=== PATIENT | female | born 1985 | race Caucasian/White ===

== ENCOUNTER 2018-03-21 11:32 | Emergency (ER) | payer BC ==
--- NOTE | 2018-03-21 12:15 | EDM.PDOC ---
ED HPI GENERAL MEDICAL PROBLEM - General Chief Complaint: ENT Problem Stated Complaint: FLUID ON EARS Time Seen by Provider: 03/21/18 11:41 Source of Information: Reports: Patient History Limitations: Reports: No Limitations - History of Present Illness INITIAL COMMENTS - FREE TEXT/NARRATIVE: Patient presents with dizziness that she describes as feeling off balance and unsteady with ambulation and upright activities. She says this is similar to feeling drunk, although she rarely drinks and nothing recent. This has been a problem off and on for two years. She says her left ear feels full. 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 She has had CT of head and sinuses and has tried Kaylyn Maneuvers with PT, Meclizine, antibiotics; she saw ENT a year ago, but nothing has helped. She denies vertigo , ear ringing or hearing loss, vision change, headache. She is okay sitting at a computer or reading but doing more active things like walking is affected and yard work is almost impossible due to what she describes as disequilibrium or off balance feeling. - Related Data Allergies Allergy/AdvReac Type Severity Reaction Status Date / Time chloroprep Allergy Cannot Uncoded 03/21/18 11:52 Remember Home Meds: Home Meds Citalopram Hydrobromide [Celexa] 10 mg PO DAILY 03/21/18 [History] ED ROS GENERAL - Review of Systems Review Of Systems: See Below Constitutional: Denies: Fever, Chills, Malaise, Weakness, Diaphoresis HEENT: Reports: Ear Pain (not pain; just fullness). Denies: Ear Discharge, Eye Discharge, Eye Pain, Hearing Loss, Sinus Problem, Vertigo, Vision Change Respiratory: Denies: Shortness of Breath Cardiovascular: Reports: No Symptoms Endocrine: Reports: No Symptoms GI/Abdominal: Reports: No Symptoms. Denies: Abdominal Pain, Vomiting : Reports: No Symptoms. Denies: Dysuria Musculoskeletal: Reports: No Symptoms Skin: Denies: Cyanosis, Jaundice, Mottled, Pallor, Diaphoresis Neurological: Reports: Dizziness. Denies: Confusion, Headache, Numbness, Seizure, Syncope, Tingling, Trouble Speaking, Difficulty Walking Psychiatric: Denies: Agitation, Anxiety, Confusion ED EXAM, DIZZINESS - Physical Exam Exam: See Below Exam Limited By: No Limitations General Appearance: Alert, WD/WN, No Apparent Distress Eye Exam: Bilateral Eye: EOMI, Normal Inspection (no nystagmus), PERRL Ears: Normal External Exam, Normal Canal, Hearing Grossly Normal, TM Dullness ( slightly on left that could be fluid). No: Hearing Loss, Auricular Erythema, Auricular Ecchymosis, Auricular Tenderness, Mastoid Swelling, Mastoid Tenderness , Canal Blood, Canal Discharge, TM Bulging, TM Erythema, TM Blood, TM Perforation, TM Obscured by Cerumen, Cerumen Impaction Nose: Normal Inspection, No Blood Throat/Mouth: Normal Inspection, Normal Lips, Normal Voice, No Airway Compromise Head Exam: Atraumatic, Normocephalic Neck: Normal Inspection, Supple, Non-Tender, Full Range of Motion Respiratory/Chest: No Respiratory Distress, Lungs Clear, Normal Breath Sounds, No Accessory Muscle Use Cardiovascular: Regular Rate, Rhythm, No Murmur, No Rub GI/Abdominal: No Distention Neurological: Alert, Normal Mood/Affect, CN II-XII Intact, No Motor/Sensory Deficits, Oriented x 3, Other (Jazmine Hallpike maneuver produced no nystagmus but did produce feelings she described as like being drunk, in both left and right, that took about a minute to resolve.) Back Exam: No: CVA Tenderness (L), CVA Tenderness (R) Extremities: Normal Inspection, Normal Range of Motion Psychiatric: Normal Affect, Normal Mood Skin Exam: Warm, Dry, Intact, Normal Color, No Rash Course - Vital Signs Last Recorded V/S: Last Vital Signs Temp 98.3 F 03/21/18 11:48 Pulse 70 03/21/18 11:48 Resp 16 03/21/18 11:48 BP 120/70 03/21/18 11:48 Pulse Ox 100 03/21/18 11:48 - Re-Assessments/Exams Free Text/Narrative Re-Assessment/Exam: 03/21/18 13:13 Discussed findings and recommendations. No sign of infection. Discussed meclizine but she has tried that without benefit. The one time she saw ENT she doesn't feel like it was very thorough; he just ruled out a couple things. I advised her to see ENT again as soon as she can get in and to be persistent with them if necessary to figure out what is causing this and what she can do to improve it. Patient agrees with this plan and is discharged to home in stable condition. Departure - Departure Time of Disposition: 12:10 Disposition: Home, Self-Care 01 Condition: Good Clinical Impression: Dizziness - Discharge Information Instructions: Dizziness, Benign Positional Vertigo Referrals: Liyah Trinh DATA WAREHOUSING MANAGER [Primary Care Provider] - Additional Instructions: 1. Make appointment with ENT as soon as available. You can schedule directly or through your PCP. 2. Return to ER as needed.
== END 2018-03-21 12:20 | disposition home or self-care (01) ==
LOC: KA.ED 11:32
DX: R42 Dizziness and giddiness (principal); Z91.048 Other nonmedicinal substance allergy status
CPT/HCPCS: 99283

== ENCOUNTER 2019-10-02 11:50 | Emergency (ER) | payer BC ==
[2019-10-02] MEDS ORDERED: Ibuprofen 600 MG Tab PO ONE (12:18)
--- NOTE | 2019-10-02 12:34 | EDM.PDOC ---
ED HPI GENERAL MEDICAL PROBLEM - General Chief Complaint: Fever Stated Complaint: FEVER Time Seen by Provider: 10/02/19 12:15 Source of Information: Reports: Patient History Limitations: Reports: No Limitations - History of Present Illness INITIAL COMMENTS - FREE TEXT/NARRATIVE: 34 YO WF presents to ER with complaints of fever, nonproductive cough and congestion x 2 days. Pt reports mild shortness of breath but denies chest pain. Pt states fever was higher this am prompting ER evaluation. Pt denies headache, no nausea/vomiting, no body aches. Pt with history of bronchitis in the past but states she ran out of her albuterol medication. Onset Date: 09/30/19 Duration: Day(s): (2) Location: Reports: Chest Severity: Mild Improves with: Reports: Medication Worsens with: Reports: None Associated Symptoms: Reports: Cough, cough w sputum, Fever/Chills, Loss of Appetite, Shortness of Breath. Denies: Headaches, Nausea/Vomiting - Related Data Allergies Allergy/AdvReac Type Severity Reaction Status Date / Time adhesive Allergy Swelling Verified 10/02/19 12:24 pseudoephedrine Allergy Anxiety Verified 10/02/19 12:24 [From Sudafed] chloroprep Allergy Cannot Uncoded 10/02/19 12:24 Remember Home Meds: Home Meds Citalopram Hydrobromide [Celexa] 20 mg PO DAILY 03/21/18 [History] Oseltamivir [Tamiflu] 75 mg PO BID #8 cap 10/02/19 [Rx] Social & Family History - Tobacco Use Smoking Status *Q: Never Smoker Second Hand Smoke Exposure: No - Caffeine Use Caffeine Use: Reports: Coffee - Recreational Drug Use Recreational Drug Use: No ED ROS GENERAL - Review of Systems Review Of Systems: See Below Constitutional: Reports: Fever, Chills, Malaise HEENT: Reports: No Symptoms Respiratory: Reports: Shortness of Breath Cardiovascular: Reports: No Symptoms Endocrine: Reports: No Symptoms GI/Abdominal: Reports: No Symptoms : Reports: No Symptoms Musculoskeletal: Reports: No Symptoms Skin: Reports: No Symptoms Neurological: Reports: No Symptoms Psychiatric: Reports: No Symptoms Hematologic/Lymphatic: Reports: No Symptoms Immunologic: Reports: No Symptoms ED EXAM, GENERAL - Physical Exam Exam: See Below Exam Limited By: No Limitations General Appearance: Alert, WD/WN, No Apparent Distress Eye Exam: Bilateral Eye: PERRL Ears: Normal External Exam, Normal Canal, Hearing Grossly Normal, Normal TMs Ear Exam: Bilateral Ear: Auricle Normal, Canal Normal, TM normal Nose: Nasal Swelling Throat/Mouth: Normal Inspection, Normal Lips, Normal Teeth, Normal Gums, Normal Oropharynx, Normal Voice, No Airway Compromise Head: Atraumatic, Normocephalic Neck: Normal Inspection, Supple, Non-Tender, Full Range of Motion Respiratory/Chest: No Respiratory Distress, Lungs Clear, Normal Breath Sounds, No Accessory Muscle Use, Chest Non-Tender Cardiovascular: Normal Peripheral Pulses, Regular Rate, Rhythm, No Edema, No Gallop, No JVD, No Murmur, No Rub GI/Abdominal: Normal Bowel Sounds, Soft, Non-Tender, No Organomegaly, No Distention, No Abnormal Bruit, No Mass Back Exam: Normal Inspection, Full Range of Motion, NT Extremities: Normal Inspection, Normal Range of Motion, Non-Tender, Normal Capillary Refill, No Pedal Edema Neurological: Alert, Oriented, CN II-XII Intact, Normal Cognition, Normal Gait, Normal Reflexes, No Motor/Sensory Deficits Psychiatric: Normal Affect, Normal Mood Skin Exam: Warm, Dry, Intact, Normal Color, No Rash Lymphatic: No Adenopathy Course - Vital Signs Last Recorded V/S: Last Vital Signs Temp 39.2 C H 10/02/19 12:22 Pulse 100 10/02/19 11:50 Resp 20 10/02/19 11:50 BP 127/85 10/02/19 11:50 Pulse Ox 98 10/02/19 11:50 - Orders/Labs/Meds Orders: Active Orders 24 hr Category Date Time Status Chest 2V [CR] Stat Exams 10/02/19 12:06 Ordered INFLUENZA A+B AG SCREEN [RM] Stat Lab 10/02/19 12:05 Ordered Meds: Medications Discontinued Medications Generic Name Dose Route Start Last Admin Trade Name Freq PRN Reason Stop Dose Admin Ibuprofen 600 mg 10/02/19 12:18 10/02/19 12:22 Motrin PO 10/02/19 12:19 600 mg ONETIME ONE Administration - Radiology Interpretation Free Text/Narrative:: CXR- NAD Departure - Departure Time of Disposition: 12:53 Disposition: Home, Self-Care 01 Condition: Fair Clinical Impression: Influenza B - Discharge Information Prescriptions: Oseltamivir [Tamiflu] 75 mg PO BID #8 cap Instructions: Influenza, Adult Referrals: Katya Patel MD [Physician] - Additional Instructions: 1. Discharge home 2. tamiflu 75mg PO BID x 5 days 3. albuterol HFA 2 puffs every 4 hours and as needed 4. zyrtec 10mg in am 5. benadryl 50mg in PM 6. afrin NS 2 sprays each nostril twice per day x 3 days only 7. follow up with pcp for recheck this week 8. return to ER for worsening symptoms Sepsis Event Note - Evaluation Sepsis Screening Result: Possible Sepsis Risk - Focused Exam Vital Signs: Vital Signs Temp Temp Pulse Resp BP Pulse Ox 10/02/19 12:22 39.2 C H 10/02/19 11:50 39.2 C H 100 20 127/85 98 Date Exam was Performed: 10/02/19 Time Exam was Performed: 12:27 - My Orders Last 24 Hours: My Active Orders 10/02/19 12:05 INFLUENZA A+B AG SCREEN [RM] Stat 10/02/19 12:06 Chest 2V [CR] Stat - Assessment/Plan Last 24 Hours: My Active Orders 10/02/19 12:05 INFLUENZA A+B AG SCREEN [RM] Stat 10/02/19 12:06 Chest 2V [CR] Stat Assessment:: 1. Influenza B Plan: 1. Discharge home 2. tamiflu 75mg PO BID x 5 days 3. albuterol HFA 2 puffs every 4 hours and as needed 4. zyrtec 10mg in am 5. benadryl 50mg in PM 6. afrin NS 2 sprays each nostril twice per day x 3 days only 7. follow up with pcp for recheck this week 8. return to ER for worsening symptoms
[2019-10-02] MEDS ORDERED: Oseltamivir 75 MG Cap PO ONE (12:41)
[2019-10-02] MEDS ORDERED: Albuterol/Ipratropium 3.0-0.5 MG/3 ML Neb Soln NEB ONE (12:47)
[2019-10-02] MEDS ORDERED: Albuterol 8 GM Inhaler INH ONE (12:47)
--- NOTE | 2019-10-02 13:01 | CR ---
[id number] RAD/RAD Chest PA And Lateral EXAM: RAD Chest PA And Lateral INDICATION: TIGHTNESS WHEN BREATHING. COMPARISON: June 04, 2013. DISCUSSION: Cardiomediastinal silhouette is normal in size and contour. No infiltrate, effusion, pneumothorax, or edema. IMPRESSION: No acute findings. Obed Marroquin MD 10/02/19 1300 Thank you for allowing us to participate in the care of your patient.
== END 2019-10-02 13:15 | disposition home or self-care (01) ==
LOC: KA.ED 11:50
DX: J10.1 Influenza due to other identified influenza virus with other respiratory manifestations (principal)
CPT/HCPCS: 71046; 87804; 94640; 99285-25; A9270-GY; J7620-GY

== ENCOUNTER 2021-04-27 19:38 | Emergency (ER) | payer BC ==
[2021-04-27] MEDS ORDERED: Sodium Chloride 0.9% 1,000 ML IV ONE (19:55)
[2021-04-27] MEDS ORDERED: Sodium Chloride 0.9% 1,000 ML ONE (19:57)
[2021-04-27] MEDS ORDERED: Ondansetron 4 MG/2 ML SDV IVPUSH ONE (20:24)
[2021-04-27] MEDS ORDERED: Acetaminophen 500 MG Tab PO ONE (20:24)
--- NOTE | 2021-04-27 20:24 | EDM.PDOC ---
ED HPI GENERAL MEDICAL PROBLEM - General Chief Complaint: Fever Stated Complaint: FEVER/MAILASE Time Seen by Provider: 04/27/21 20:00 Source of Information: Reports: Patient History Limitations: Reports: No Limitations - History of Present Illness INITIAL COMMENTS - FREE TEXT/NARRATIVE: 35 YO WF PRESENTS TO ER COMPLAINING OF FEVER AND MALAISE X 1 DAYS. PT REPORTS FEVER CAME ON SUDDENLY WITH ASSOCIATED BODY ACHES, NAUSEA AND MILD GENERALIZED HEADACHE. PT REPORTS SHE WAS SEEN AT THE WALK IN CLINIC TODAY BUT WAS TOLD SHE HAD A VIRAL SYNDROME AND INSTRUCTED TO FOLLOW UP FOR RECHECK IF THE FEVERS CONTINUE PROMPTING ER EVALUATION. PT REPORTS SHE HAS HAD THE COVID VACCINE OCTOBER 2020. PT DENIES CHEST PAIN OR SHORTNESS OF BREATH. PT DENIES ABDOMINAL PAIN OR DIARRHEA. Onset Date: 04/26/21 Location: Reports: Generalized Quality: Reports: Ache Severity: Moderate Improves with: Reports: Medication Worsens with: Reports: None Associated Symptoms: Reports: Fever/Chills, Malaise, Nausea/Vomiting. Denies: Rash, Shortness of Breath, Weakness Treatments CERTIFIED MEDICAL BILLER: Reports: NSAIDS Generalized Pain Score (Numeric/FACES): 5 - Related Data Allergies Allergy/AdvReac Type Severity Reaction Status Date / Time adhesive Allergy Swelling Verified 04/27/21 20:04 pseudoephedrine Allergy Anxiety Verified 04/27/21 20:04 [From Sudafed] chloroprep Allergy Cannot Uncoded 04/27/21 20:04 Remember Home Meds: Home Meds Citalopram Hydrobromide [Celexa] 20 mg PO DAILY 03/21/18 [History] Past Medical History HEENT History: Reports: None Other Cardiovascular History: PVC'S Respiratory History: Reports: Other (See Below) Other Respiratory History: BRONCHITIS IN THE PAST Gastrointestinal History: Reports: None Genitourinary History: Reports: None GROUP INSURANCE SPECIALIST History: Reports: Musculoskeletal History: Reports: None Psychiatric History: Reports: Depression - Infectious Disease History Infectious Disease History: Reports: Chicken Pox - Past Surgical History HEENT Surgical History: Reports: Tonsillectomy Cardiovascular Surgical History: Reports: None Respiratory Surgical History: Reports: None GI Surgical History: Reports: Appendectomy, Hernia Repair/Other Female Surgical History: Reports: Section Musculoskeletal Surgical History: Reports: Other (See Below) Other Musculoskeletal Surgeries/Procedures:: LEFT ANKLE LIGAMENT ATTATCHMENT. RIGHT KNEE ALIGNMENT Social & Family History - Family History Family Medical History: No Pertinent Family History - Tobacco Use Tobacco Use Status *Q: Never Tobacco User - Caffeine Use Caffeine Use: Reports: Coffee, Energy Drinks - Recreational Drug Use Recreational Drug Use: No ED ROS GENERAL - Review of Systems Review Of Systems: See Below Constitutional: Reports: Fever, Chills, Malaise HEENT: Reports: Rhinitis, Throat Pain Respiratory: Reports: Cough Cardiovascular: Reports: No Symptoms Endocrine: Reports: No Symptoms GI/Abdominal: Reports: Nausea. Denies: Abdominal Pain, Constipation, Diarrhea, Vomiting : Reports: No Symptoms. Denies: Dysuria, Frequency, Urgency Musculoskeletal: Reports: No Symptoms Skin: Reports: No Symptoms Neurological: Reports: Headache Psychiatric: Reports: No Symptoms Hematologic/Lymphatic: Reports: No Symptoms Immunologic: Reports: No Symptoms ED EXAM, GENERAL - Physical Exam Exam: See Below Exam Limited By: No Limitations General Appearance: Alert, WD/WN, No Apparent Distress Eye Exam: Bilateral Eye: PERRL Ears: Normal External Exam, Normal Canal, Hearing Grossly Normal, Normal TMs Ear Exam: Bilateral Ear: TM normal Nose: Normal Inspection, Normal Mucosa, No Blood Throat/Mouth: Normal Inspection, Normal Lips, Normal Teeth, Normal Gums, Normal Oropharynx, Normal Voice, No Airway Compromise Head: Atraumatic, Normocephalic Neck: Normal Inspection, Supple, Non-Tender, Full Range of Motion Respiratory/Chest: No Respiratory Distress, Lungs Clear, Normal Breath Sounds, No Accessory Muscle Use, Chest Non-Tender Cardiovascular: Normal Peripheral Pulses, Regular Rate, Rhythm, No Edema, No Gallop, No JVD, No Murmur, No Rub GI/Abdominal: Normal Bowel Sounds, Soft, Non-Tender, No Organomegaly, No Distention, No Abnormal Bruit, No Mass Back Exam: Normal Inspection, Full Range of Motion, NT Extremities: Normal Inspection, Normal Range of Motion, Non-Tender, Normal Capillary Refill, No Pedal Edema Neurological: Alert, Oriented, CN II-XII Intact, Normal Cognition, Normal Gait, No Motor/Sensory Deficits Psychiatric: Normal Affect, Normal Mood Skin Exam: Warm, Dry, Intact, Normal Color, No Rash Lymphatic: No Adenopathy Course - Vital Signs Last Recorded V/S: Last Vital Signs Temp 99.7 F 04/27/21 21:01 Pulse 102 H 04/27/21 19:38 Resp 18 07/17/21 19:38 BP 122/77 04/27/21 19:38 Pulse Ox 97 04/27/21 19:38 - Orders/Labs/Meds Orders: Active Orders 24 hr Category Date Time Status Chest 2V [CR] Stat Exams 04/27/21 20:03 Ordered Labs: Laboratory Tests 04/27/21 04/27/21 04/27/21 Range/Units 19:52 20:00 20:15 WBC 12.62 H (5.00-10.00) 10^3/uL RBC 4.32 (3.80-5.50) 10^6/uL Hgb 14.0 (12.0-16.0) g/dL Hct 40.9 (37.0-47.0) % MCV 94.7 H (82.0-92.0) fL MCH 32.4 H (27.0-31.0) pg MCHC 34.2 (32.0-36.0) g/dL RDW 13.0 (11.5-14.5) % Plt Count 220 (150-400) 10^3/uL MPV 10.6 H (7.4-10.4) fL Immature Gran % (Auto) 0.2 (0.0-5.0) % Neut % (Auto) 70.7 H (50.0-70.0) % Lymph % (Auto) 16.3 L (20.0-40.0) % [place] % (Auto) 11.9 H (2.0-8.0) % Eos % (Auto) 0.8 L (1.0-3.0) % Baso % (Auto) 0.1 (0.0-1.0) % Neut # (Auto) 8.93 H (2.50-7.00) 10^3/uL Lymph # (Auto) 2.06 (1.00-4.00) 10^3/uL [place] # (Auto) 1.50 H (0.10-0.80) 10^3/uL Eos # (Auto) 0.10 (0.10-0.30) 10^3/uL Baso # (Auto) 0.01 (0.00-0.10) 10^3/uL Immature Gran # (Auto) 0.02 (0.00-0.50) 10^3/uL Sodium (136-145) mmol/L Potassium (3.5-5.1) mmol/L Chloride (98-107) mmol/L Carbon Dioxide (21.0-32.0) mmol/L Anion Gap (5-15) mmol/L BUN (7-18) mg/dL Creatinine (0.51-1.17) mg/dL Est Cr Clr Drug Dosing mL/min Estimated GFR (MDRD) mL/min Glucose (70-140) mg/dL Calcium (8.7-10.3) mg/dL Total Bilirubin (0.2-1.0) mg/dL AST (15-37) U/L ALT (14-63) U/L Alkaline Phosphatase (46-116) U/L Total Protein (6.4-8.2) g/dL Albumin (3.40-5.00) g/dL HCG, Qual (NEGATIVE) Specimen Type Urincc Urine Color Yellow (YELLOW) Urine Appearance Slightly cloudy H (CLEAR) Urine pH 8.0 (5.0-9.0) Ur Specific [place] 1.015 (1.005-1.030) Urine Protein Negative (NEGATIVE) mg/dL Urine Glucose (UA) Negative (NEGATIVE) mg/dL Urine Ketones Negative (NEGATIVE) mg/dL Urine Occult Blood Negative (NEGATIVE) Urine Nitrite Negative (NEGATIVE) Urine Bilirubin Negative (NEGATIVE) Urine Urobilinogen 0.2 (0.2-1.0) E.U./dL Ur Leukocyte Esterase Negative (NEGATIVE) Urine RBC 0-5 (0-5) /HPF Urine WBC 0-5 (0-5) /HPF Ur Epithelial Cells Few /LPF Urine Bacteria Few (NONE TO FEW) /HPF SARS CoV-2 RNA Rapid EVELYNE Negative (NEGATIVE) 04/27/21 04/27/21 Range/Units 20:30 20:30 WBC (5.00-10.00) 10^3/uL RBC (3.80-5.50) 10^6/uL Hgb (12.0-16.0) g/dL Hct (37.0-47.0) % MCV (82.0-92.0) fL MCH (27.0-31.0) pg MCHC (32.0-36.0) g/dL RDW (11.5-14.5) % Plt Count (150-400) 10^3/uL MPV (7.4-10.4) fL Immature Gran % (Auto) (0.0-5.0) % Neut % (Auto) (50.0-70.0) % Lymph % (Auto) (20.0-40.0) % [place] % (Auto) (2.0-8.0) % Eos % (Auto) (1.0-3.0) % Baso % (Auto) (0.0-1.0) % Neut # (Auto) (2.50-7.00) 10^3/uL Lymph # (Auto) (1.00-4.00) 10^3/uL [place] # (Auto) (0.10-0.80) 10^3/uL Eos # (Auto) (0.10-0.30) 10^3/uL Baso # (Auto) (0.00-0.10) 10^3/uL Immature Gran # (Auto) (0.00-0.50) 10^3/uL Sodium 139 (136-145) mmol/L Potassium 3.7 (3.5-5.1) mmol/L Chloride 102 (98-107) mmol/L Carbon Dioxide 26.6 (21.0-32.0) mmol/L Anion Gap 14.1 (5-15) mmol/L BUN 9 (7-18) mg/dL Creatinine 0.84 (0.51-1.17) mg/dL Est Cr Clr Drug Dosing 90.04 mL/min Estimated GFR (MDRD) > 60 mL/min Glucose 99 (70-140) mg/dL Calcium 8.2 L (8.7-10.3) mg/dL Total Bilirubin 0.3 (0.2-1.0) mg/dL AST 16 (15-37) U/L ALT 20 (14-63) U/L Alkaline Phosphatase 84 (46-116) U/L Total Protein 7.4 (6.4-8.2) g/dL Albumin 3.67 (3.40-5.00) g/dL HCG, Qual Negative (NEGATIVE) Specimen Type Urine Color (YELLOW) Urine Appearance (CLEAR) Urine pH (5.0-9.0) Ur Specific [place] (1.005-1.030) Urine Protein (NEGATIVE) mg/dL Urine Glucose (UA) (NEGATIVE) mg/dL Urine Ketones (NEGATIVE) mg/dL Urine Occult Blood (NEGATIVE) Urine Nitrite (NEGATIVE) Urine Bilirubin (NEGATIVE) Urine Urobilinogen (0.2-1.0) E.U./dL Ur Leukocyte Esterase (NEGATIVE) Urine RBC (0-5) /HPF Urine WBC (0-5) /HPF Ur Epithelial Cells /LPF Urine Bacteria (NONE TO FEW) /HPF SARS CoV-2 RNA Rapid EVELYNE (NEGATIVE) Meds: Medications Discontinued Medications Generic Name Dose Route Start Last Admin Trade Name Freq PRN Reason Stop Dose Admin Acetaminophen 1,000 mg 04/27/21 20:24 04/27/21 20:31 Acetaminophen 500 Mg Tab PO 04/27/21 20:25 1,000 mg ONETIME ONE Administration Sodium Chloride Confirm 04/27/21 19:57 04/27/21 20:34 Normal Saline Administered 04/27/21 19:58 Not Given Dose 1,000 mls @ as directed .ROUTE .STK-MED ONE Sodium Chloride 1,000 mls @ 999 mls/hr 04/27/21 19:55 04/27/21 19:59 Normal Saline IV 04/27/21 20:55 999 mls/hr .BOLUS ONE Administration Ondansetron HCl 4 mg 04/27/21 20:24 04/27/21 20:29 Ondansetron 4 Mg/2 Ml Sdv IVPUSH 04/27/21 20:25 4 mg ONETIME ONE Administration Ondansetron HCl 12 mg 04/27/21 21:06 04/27/21 21:15 Ondansetron 4 Mg Tab.Dis PO 04/27/21 21:07 12 mg ONETIME ONE Administration - Radiology Interpretation Free Text/Narrative:: CXR- NAD Departure - Departure Time of Disposition: 21:08 Disposition: Home, Self-Care 01 Condition: Fair Clinical Impression: Viral syndrome, Fever - Discharge Information Instructions: Fever, Adult, Viral Illness, Adult Referrals: Sherry Abdi MD [Physician] - Forms: ED Department Discharge Additional Instructions: 1. DISCHARGE HOME 2. TYLENOL 1000MG EVERY 6 HOURS FOR FEVER X 2 DAYS 3. MOTRIN 600MG EVERY 6 HOURS FOR FEVER X 2 DAYS 4. ZOFRAN 4MG ODT FOR NAUSEA EVERY 6 HOURS NEEDED #3 5. ZYRTEC 10MG DAILY FOR COUGH/CONGESTION 6. FOLLOW UP WITH PCP FOR FURTHER EVALUATION AND TREATMENT NEEDED 7. RETURN TO ER FOR WORSENING SYMPTOMS Sepsis Event Note (ED) - Evaluation Sepsis Screening Result: Possible Sepsis Risk - Focused Exam Vital Signs: Vital Signs Temp Temp Pulse Resp BP Pulse Ox 04/27/21 21:01 99.7 F 04/27/21 20:31 99.4 F 04/27/21 19:38 99.2 F 102 H 18 122/77 97 - My Orders Last 24 Hours: My Active Orders 04/27/21 20:03 Chest 2V [CR] Stat - Assessment/Plan Last 24 Hours: My Active Orders 04/27/21 20:03 Chest 2V [CR] Stat Assessment:: 1. FEVER/CHILLS 2. VIRAL URI Plan: 1. DISCHARGE HOME 2. TYLENOL 1000MG EVERY 6 HOURS FOR FEVER X 2 DAYS 3. MOTRIN 600MG EVERY 6 HOURS FOR FEVER X 2 DAYS 4. ZOFRAN 4MG ODT FOR NAUSEA EVERY 6 HOURS NEEDED #3 5. ZYRTEC 10MG DAILY FOR COUGH/CONGESTION 6. FOLLOW UP WITH PCP FOR FURTHER EVALUATION AND TREATMENT NEEDED 7. RETURN TO ER FOR WORSENING SYMPTOMS
[2021-04-27 21:04] LABS: ANION GAP 14.1 mmol/L (5-15); CHLORIDE,CL 102 mmol/L (98-107); SODIUM,NA 139 mmol/L (136-145)
[2021-04-27] MEDS ORDERED: Ondansetron 4 MG Tab.DIS PO ONE (21:06)
[2021-04-28] MEDS ORDERED: Albuterol/Ipratropium 3.0-0.5 MG/3 ML Neb Soln ONE (00:07)
--- NOTE | 2021-04-28 09:31 | CR ---
[id number] RAD/RAD Chest PA And Lateral EXAM: FRONTAL AND LATERAL CHEST INDICATION: FEVER COMPARISON: October 02, 2019. DISCUSSION: The heart and lungs are normal in appearance. IMPRESSION: 1. Negative exam. Hilario Mendoza MD 04/28/21 0930 Thank you for allowing us to participate in the care of your patient.
== END 2021-04-27 21:18 | disposition home or self-care (01) ==
LOC: KA.ED 19:38
DX: B34.9 Viral infection, unspecified (principal); Z88.8 Allergy status to other drugs, medicaments and biological substances; Z91.048 Other nonmedicinal substance allergy status; Z20.822 Contact with and (suspected) exposure to COVID-19
CPT/HCPCS: 71046; 80053; 81001; 84703; 85025; 87635; 96374; 99283; A9270; J2405; J7030; U0002

== ENCOUNTER 2022-03-11 20:10 | Emergency (ER) | payer BC ==
[2022-03-11] MEDS: Fluorescein 1 MG Ophth Strip EYEBOTH ONE (20:54)
[2022-03-11] MEDS: Tetracaine HCl/PF 0.5% 4 ML Bottle EYEBOTH ONE (20:56)
[2022-03-11] MEDS: Ofloxacin 0.3% Ophth Soln 5 ML Bottle EYERT SCH (21:15)
== END 2022-03-11 21:24 | disposition home or self-care (01) ==
LOC: KA.ED 20:10
DX: S05.01XA Injury of conjunctiva and corneal abrasion without foreign body, right eye, initial encounter (principal); H10.9 Unspecified conjunctivitis; Z91.048 Other nonmedicinal substance allergy status; Z88.8 Allergy status to other drugs, medicaments and biological substances; W22.8XXA Striking against or struck by other objects, initial encounter
CPT/HCPCS: 65220; 99283; A9270-GY